=== PATIENT | female | born 1935 | race African-American/Black ===

== ENCOUNTER → 2024-01-25 13:45 | Outpatient (REF) | payer OTHER, SELFPAY | LOC: RAD 13:45 | PROVIDERS: ATTENDING PHYSICIAN Podiatrist Foot & Ankle Surgery; FAMILY PHYSICIAN Family Medicine | DX: I73.9 Peripheral vascular disease, unspecified (principal) | CPT/HCPCS: 93922 ==

== ENCOUNTER 2024-05-01 17:06 | Emergency (ER) | payer OTHER, SELFPAY ==
[2024-05-01 17:12] VITALS: BP 132/72
[2024-05-01 19:59] VITALS: BMI 24.1
[2024-05-01 20:02] VITALS: BP 113/69
[2024-05-01] MEDS: ULTRAM 100 MG PO (20:05)
--- NOTE | 2024-05-01 20:15 | ED.GENMED ---
History of Present Illness
General
Chief Complaint: Musculo-Skeletal Complaint
Time Seen by Provider: 05/01/24 19:37
History of Present Illness
History of Present Illness:
88-year-old female with history of CHF, hypertension, chronic kidney disease, and rheumatoid arthritis on chronic prednisone presents for evaluation of severe bilateral knee pain. Reports right greater than left pain. She is wheelchair dependent
and nonambulatory, however today has been essentially unable to move the legs secondary to knee pain. No fevers or chills. No falls or traumatic injuries.
Past History
Past History
ED Past Medical History: Arrthythmia, CHF (CHF with reduced EF), HTN, Renal failure (Chronic kidney disease stage III) and Other (Rheumatoid arthritis; anemia of chronic disease, stage II sacral decubitus; chronic deconditioning, UTI with sepsis
December 2022)
ED Past Surgical History: Cardiac (Def/Pacemaker)
Social History
Tobacco: Non-smoker
Alcohol: None
Personal:
Living: long-term
Family History
Family History: Other (Noncontributory)
Review of Systems
Review of Systems
Allergies reviewed?: Yes
All Other Systems: ROS reviewed and negative except as documented in HPI and ROS
Phy Exam
Physical Exam
Physical Exam:
GEN: Well appearing, NAD, WDWN
HEENT: Oral mucosa moist, no scleral icterus
Cardiac: Regular rate
Lung: No respiratory distress, no tachypnea
MSK: Significant valgus deformity of the right knee, palpation of the right knee elicits severe pain. Unable to perform passive range of motion secondary to severe pain. Possible small left knee effusion, palpation does not elicit pain, passive
range of motion again elicits severe pain
Skin: Good color, no pallor or jaundice, no rashes
Neuro: AO x3, moves all extremities freely
Psych: Calm, cooperative
Course
Orders/Labs/Results
Orders:
Orders
05/01/24 19:48
Tramadol HCl [Ultram] 100 mg PO NOW STA
CR Knee - Left 1 Or 2 Views Urgent
Comment:
Reason For Exam: severe pain
CR Knee - Right 1 Or 2 Views Urgent
Comment:
Reason For Exam: severe pain
05/01/24 21:14
Dexamethasone Sod Phosphate [Decadron] 6 mg IM NOW STA
Vital Signs
Initial and Last Documented VS:
Initial Vital Signs
Temp Pulse Resp BP Pulse Ox
98.3 F 86 16 132/72 95
05/01/24 17:12 05/01/24 17:12 05/01/24 17:12 05/01/24 17:12 05/01/24 17:12
Last Documented Vital Signs
Temp Pulse Resp BP Pulse Ox
98.4 F 72 17 105/69 96
05/01/24 20:02 05/01/24 21:46 05/01/24 21:46 05/01/24 21:46 05/01/24 21:46
MDM/Problems Addressed
MDM/Problems Addressed:
Unclear cause of the patient's sudden worsening of pain. Limited bedside ultrasound performed by myself shows no evidence of knee effusion thus I have a low suspicion for septic arthritis. 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
is nonambulatory at baseline. She has no pain in the proximal calves or thighs to suggest alternative etiology. Certainly could be soft tissue injury in nature, unfortunately medication options are limited as the patient has stage IV CKD and thus
NSAIDs are not an option, she is chronically on tramadol and patient's family would prefer not to provide higher dose opioids. She is chronically on steroids thus we will give a short steroid taper and the hope that this provide some
anti-inflammatory benefit. At this time the family is comfortable with her level of care and resources available to her at [facility] and are happy to take her home tonight however will reconsider need for further resources as an outpatient
*Critical Care Note
Total Time (30-74mins, 75-104mins- exclusive of procedures): Not Applicable
ED Attending Note
-
Portions of this chart may have been created with voice recognition software.� Occasional wrong word or��sound alike� substitutions may have occurred due to the inherent limitations of voice recognition software.
Discharge Plan
Departure
Patient Disposition: Home (Routine Discharge)
Date of Disposition: 05/01/24
Time of Disposition: 21:15
Patient with high blood pressure during this ER visit?: No
Discharge Problem:
Acute bilateral knee pain
Instructions: Knee Pain (DC)
Prescriptions:
New
methylprednisolone [Medrol (Chandan)] 4 mg tablets,dose pack
See Rx Instructions .ROUTE .COMPLEX Qty: 21 0RF
Rx Instructions:
orally per package directions
No Action
furosemide [Lasix] 40 mg Tablet
40 mg PO DAILY
sennosides [Senokot] 8.6 mg Tablet
17.2 mg PO HS
acetaminophen [Tylenol Extra Strength] 500 mg Tablet
1,000 mg PO Q8HPRN PRN (Reason: mild pain)
bisacodyl 10 mg Suppository
10 mg MS DAILYPRN PRN (Reason: if no bm aftr mom)
Fleet Enema 19-7 gram/118 mL Enema
118 ml MS DAILYPRN PRN (Reason: if no bm aftr dulcolax)
magnesium hydroxide [Milk of Magnesia] 400 mg/5 mL Suspension
2,400 mg PO [id number] PRN (Reason: if no bm by 2nd day)
Santyl 250 unit/gram Ointment
1 applic TOPICAL BID
diclofenac sodium 1 % Gel
4 g TOPICAL QID
polyethylene glycol 3350 [Miralax] 17 gram Powder In Packet
17 g PO DAILY
prednisone 5 mg tablet
5 mg PO DAILY
metolazone 5 mg tablet
5 mg PO DAILY
oxymetazoline [Nasal Decongestant (oxymetazl)] 0.05 % spray,non-aerosol
2 spray intranasal BID
oxycodone 10 mg Tablet
10 mg PO DAILY PRN (Reason: Severe pain) Qty: 2 0RF
sennosides [Senna Lax] 8.6 mg Tablet
17.2 mg PO HS Qty: 0 0RF
pantoprazole [Protonix] 40 mg tablet,delayed release (DR/EC)
40 mg PO DAILY Qty: 30 0RF
Referrals:
Ady Borrero MD [Family Provider] -
Caro Olson I., [Active] -
Activity Restrictions/Additional Instructions:
Start the steroid pack tomorrow
DO NOT take your daily prednisone while on the steroid pack; however, you should begin your regular prednisone the day AFTER completing the steroid pack
Follow up with Orthopedics for further assessment
Interventions
Interventions:
*Risk Screen - Suicide Last Done: 05/01/24 17:12
*Neglect/Abuse Screening Last Done: 05/01/24 17:12
*ED- Fall Risk Assessment Last Done: 05/01/24 20:01
*ED COVID-19 Vaccine History Last Done: 05/01/24 20:01
*Nursing Disposition Last Done: 05/02/24 00:09
ED-Musculoskeletal Assessment Last Done: 05/01/24 20:04
Discharge Date and Time
Discharge Date/Time: 05/02/24 00:11
Print Language: GRENADIAN
[2024-05-01 21:46] VITALS: BP 105/69
[2024-05-01] MEDS: DECADRON 6 MG IM (21:49)
== END 2024-05-02 00:11 | disposition home or self-care (01) ==
LOC: EMR 17:06
PROVIDERS: EMERGENCY PHYSICIAN Emergency Medicine; FAMILY PHYSICIAN Family Medicine
DX: M25.562 Pain in left knee (principal); M25.561 Pain in right knee; I13.0 Hypertensive heart and chronic kidney disease with heart failure and stage 1 through stage 4 chronic kidney disease, or unspecified chronic kidney disease; I50.9 Heart failure, unspecified; N18.4 Chronic kidney disease, stage 4 (severe); M06.9 Rheumatoid arthritis, unspecified; Z79.52 Long term (current) use of systemic steroids; Z95.0 Presence of cardiac pacemaker; Z99.3 Dependence on wheelchair
CPT/HCPCS: 99283; 73560